=== PATIENT | female | born 1960 | race Caucasian/White ===

== ENCOUNTER → 2016-12-28 | Outpatient (CLI) | payer OTHER ==
--- NOTE | 2016-12-28 15:30 | RADRPT ---
EXAM DATE/TIME: 12/28/2016 14:08 [place] COMPARISON: No previous studies available for comparison. INDICATIONS : Pain. MEDICAL HISTORY : Hypertension. SURGICAL HISTORY : None. ENCOUNTER: Initial ACUITY: 3 months PAIN SCORE: 3/10 LOCATION: neck. TECHNIQUE: Multiplanar, multisequence MRI examination of the cervical spine was performed. FINDINGS: VERTEBRAE: Normal vertebral body height. Homogeneous marrow signal. ALIGNMENT: No evidence of subluxation. CORD: Normal configuration and signal. POST FOSSA: The cerebellar tonsils are normal in position. C2-C3: The thecal sac has a normal configuration. There is no evidence of disc herniation or spinal canal s tenosis. The neural foramina are patent bilaterally. C3-C4: Very mild uncinate ridging is present without significant spinal stenosis or disc herniation. C4-C5: The thecal sac has a normal configuration. There is no evidence of disc herniation or spinal canal s tenosis. The neural foramina are patent bilaterally. C5-C6: Mild uncinate ridging is present causing minimal flattening of the intrathecal space without signific ant spinal stenosis or neural foramen encroachment. C6-C7: The thecal sac has a normal configuration. There is no evidence of disc herniation or spinal canal s tenosis. The neural foramina are patent bilaterally. C7-T1: The thecal sac has a normal configuration. There is no evidence of disc herniation or spinal canal s tenosis. The neural foramina are patent bilaterally. CONCLUSION: Mild degenerative changes as described above. Bautista Hill MD FACR on December 28, 2016 at 15:27 Board Certified Radiologist. This report was verified electronically.
== END ==
LOC: HRAD 13:18
DX: M54.2 Cervicalgia (principal)
CPT/HCPCS: 72141